=== PATIENT | male | born 1950 | race Caucasian/White ===

== ENCOUNTER 2018-12-29 05:56 | Day surgery (SDC) | payer MEDICARE, OTHER ==
[~2018-12-29] VITALS: Ht 175.3 cm; Wt 75.6 kg
[~2018-12-29 05:56] MED LIST: AREDS PO; ERGO400 PO; MAGNESIUM PO; Senna8.6 MG PO; Stool Softener100 MG PO; ZESTORETIC 20-121 EA PO
--- NOTE | 2018-12-29 07:02 | NUR ---
History, Chart, Medications and Allergies reviewed before start of procedure.Patient confirms NPO status and agrees with scheduled surgery. Patient reports completing Chlorhexadine shower X2 prior to admission to hospital.Surgical site prepped with 2% Chlorhexidine cloth wipe.
--- NOTE | 2018-12-29 13:59 | NUR ---
PATIENT DISCHARGED IN STABLE CONDITION, URGE TO URINATE HAS PASSED AND HE WAS ABLE TO VOID ANOTHER 30 ML FOR A TOTAL OF 90 ML. PATIENT HAD SOME DESATURATIONS WHILE AT REST THAT REQUIRED FREQUENT REMINDERS UNTIL THE LAST 30 MINUTES OF HIS RECOVERY IN WHICH HE STATES THAT HE FEELS MUCH BETTER AND WOULD LIKE TO BE DISCHARGED HOME. DISCHARGE INSTRUCTIONS GIVEN AND UNDERSTANDING STATED BY PATIENT AND FAMILY. COPY OF DISCHARGE INSTRUCTIONS GIVEN AND SCRIPT GIVEN TO PATIENT.
== END 2018-12-29 14:03 | disposition home or self-care (01) ==
LOC: ORSCMMR 05:56 → ORD 07:30 → ORSCMMR 14:03
PROVIDERS: Surgery
PROC: 0YUA4JZ Supplement Bilateral Inguinal Region with Synthetic Substitute, Percutaneous Endoscopic Approach (ICD-10-PCS; principal; 2018-12-29 07:30)
PROC: 8E0W4CZ Robotic Assisted Procedure of Trunk Region, Percutaneous Endoscopic Approach (ICD-10-PCS; principal; 2018-12-29 07:30)
DX: K40.20 Bilateral inguinal hernia, without obstruction or gangrene, not specified as recurrent (principal); I10 Essential (primary) hypertension; Z79.899 Other long term (current) drug therapy
CPT/HCPCS: 49650; S2900; A9270-GY; C1781; J0690; J1100; J1885; J2250; J2405; J2710; J3010; J7120

== ENCOUNTER 2023-09-30 12:08 | Day surgery (SDC) | payer MEDICARE, OTHER ==
[~2023-09-30] VITALS: Ht 175.3 cm; Wt 71.6 kg
[~2023-09-30 12:08] MED LIST changes: +Azelex30 GM; -ERGO400 PO; +GABAPENTIN; +Vitamin D3
[2023-09-30] MEDS ORDERED: LISINOPRIL-HCT1 EACH PO (12:52)
[2023-09-30] MEDS ORDERED: NEURONTIN300 MG PO (12:54)
--- NOTE | 2023-09-30 13:49 | NUR ---
09/30/[address] AWARE OF PULSE RATE OF 42 ON MONITOR AND 46 MANUAL COUNTED PULSE RATE.
--- NOTE | 2023-09-30 14:10 | NUR ---
09/30/23 1410 Emily Ly 40ML OF ROPIVACAINE 0.5% MIXED AND VERIFIED WITH 0.2ML OF EPI (1MG/ML) TO MAKE ROPIVACAINE 0.5% WITH EPI 1:200,000 FOR INJECTION AT THE OPSITE BY DR MENDEZ.
[2023-09-30 15:16] VITALS: BP 160/72
== END 2023-09-30 16:11 | disposition home or self-care (01) ==
LOC: ORSCSDS 12:08
PROVIDERS: Podiatrist Foot & Ankle Surgery
PROC: 0SGN04Z Fusion of Left Metatarsal-Phalangeal Joint with Internal Fixation Device, Open Approach (ICD-10-PCS; principal; 2023-09-30 13:30)
DX: M20.22 Hallux rigidus, left foot (principal); I10 Essential (primary) hypertension; Z79.899 Other long term (current) drug therapy; Z87.891 Personal history of nicotine dependence; Z85.46 Personal history of malignant neoplasm of prostate
CPT/HCPCS: 88305; 89060; C1713; J0171; J0690; J1100; J2405; J2704; J2795; J3010; J7120

== ENCOUNTER 2025-06-12 15:37 | Emergency (ER) | payer MEDICARE, OTHER ==
[~2025-06-12] VITALS: Ht 167.6 cm; Wt 72.6 kg
[~2025-06-12 15:37] MED LIST changes: +LISINOPRIL-HCT1 EACH PO; +NEURONTIN300 MG PO
[2025-06-12 15:50] LABS: Calcium, Ionized (POC) 1.09 mmol/L (1.10-1.46); Chloride (POC) 96 mmol/L (98-108); Creatinine (POC) 1.2 mg/dL (0.8-1.3); Glucose (ISTAT POC) 139 mg/dL (70-99); Hematocrit (POC) 38.0 % (41.0-53.0); Hemoglobin (POC) 12.9 g/dL (13.5-17.5); Potassium (POC) 3.3 mmol/L (3.5-5.5); Sodium (POC) 135 mmol/L (135-148); Total CO2 (POC) 26 mmol/L (21-32)
[2025-06-12] MEDS ORDERED: NS 1,000 ML IV SCH (15:50)
[2025-06-12 16:01] LABS: pH Blood Venous 7.38 (7.34-7.37)
[2025-06-12 16:05] LABS: BASOPHILS ABSOLUTE AUTO 0.06 K/mm3 (0.00-0.23); BASOPHILS PERCENT AUTO 0 % (0-2); EOSINOPHILS ABSOLUTE AUTO 0.06 K/mm3 (0.00-0.68); EOSINOPHILS PERCENT AUTO 0 % (0-6); Hematocrit 36.4 % (37.0-53.0); Hemoglobin 12.9 g/dL (13.5-17.5); IMMATURE GRAN ABSOLUTE AUTO 0.05 K/mm3 (0.00-0.10); IMMATURE GRAN PERCENT AUTO 0 % (0-1); LYMPHOCYTES ABSOLUTE AUTO 2.08 K/mm3 (0.84-5.20); LYMPHOCYTES PERCENT AUTO 16 % (21-46); MONOCYTES ABSOLUTE AUTO 0.98 K/mm3 (0.16-1.47); MONOCYTES PERCENT AUTO 7 % (4-13); Mean Corpuscular HGB Conc 35.4 g/dL (31.5-36.5); Mean Corpuscular Volume 96 fL (80-100); NEUTROPHILS ABSOLUTE AUTO 10.12 K/mm3 (1.96-9.15); NEUTROPHILS PERCENT AUTO 76 % (41-73); NRBC ABSOLUTE 0.00 K/mm3 (0.00-0.02); NRBC Auto 0.0 /100 WBC (0.0-0.2); Platelet Count 227 K/mm3 (150-400); RDW Coefficient Variation 12.6 % (11.7-14.2); RDW Standard Deviation 44.3 fL (35.1-46.3)
[2025-06-12] MEDS ORDERED: CefTRIAXone Sodium 1,000 MG in NS 50 ML IV ONE (16:05)
[2025-06-12 16:18] LABS: Source, Urine Straight Cath
[2025-06-12 16:21] LABS: Bilirubin, Urine Neg (Neg); Color, Urine Yellow (P-Yellow); Glucose Qualitative, Urine Neg (Neg); Ketones, Urine Neg (Neg); Leukocyte Esterase, Urine 1+ (Neg); Protein, Urine 2+ (Neg); Specific Gravity, Urine 1.015 (1.003-1.022); Urobilinogen, Urine 1+ (Normal)
[2025-06-12 16:34] LABS: Red Blood Cells, Urine 0-2 /hpf (0-2)
[2025-06-12 16:37] LABS: Alanine Aminotransfer (ALT/SGP 23.0 U/L (12-78); Albumin, Blood 3.2 g/dL (3.4-5.0); Albumin/Globulin Ratio 1.4 (0.8-1.8); Anion Gap 8.0 mmol/L (3-11); Aspartate Aminotrans (AST/SGOT 30.0 U/L (12-37); Bilirubin, Total 0.6 mg/dL (0.1-1.0); Blood Urea Nitrogen 19.0 mg/dL (8-24); CO2, Blood 29.0 mmol/L (21-32); Calcium, Blood 8.3 mg/dL (8.5-10.1); Chloride, Blood 100.0 mmol/L (98-108); Creatinine, Blood 1.08 mg/dL (0.60-1.20); Globulin, Blood 2.3 g/dL (2.2-4.0); Glucose, Blood 136.0 mg/dL (70-99); Potassium, Blood 3.3 mmol/L (3.5-5.5); Sodium, Blood 134.0 mmol/L (136-145); Total Protein, Blood 5.5 g/dL (6.4-8.2)
[2025-06-12] MEDS ORDERED: CONSTULOSE10 GM/155 PO (16:39)
[2025-06-12 18:15] VITALS: BP 94/66
--- NOTE | 2025-06-12 18:37 | NUR ---
Pastoral support is given to the spouse as Pt. is being prepped for Life Flight to [place]. Walked Pt. to the helipad, and listened with empathy and a calming presence as the spouse gave a life review. Escorted the Spouse back to the hospital after the helicopter departed.
== END 2025-06-12 18:21 | disposition short-term general hospital (02) ==
LOC: ER 15:37
PROVIDERS: Emergency Medicine
DX: I71.010 Dissection of ascending aorta (principal); I31.39 Other pericardial effusion (noninflammatory); I31.4 Cardiac tamponade; I10 Essential (primary) hypertension; Z79.899 Other long term (current) drug therapy
CPT/HCPCS: 51702; 71045; 71260; 80047; 80053; 81001; 82803; 83605; 84484; 85014; 85025; 87086; 93005; 93010; 93306; 96365-59; 96366; 96368; 99285-25; J0696; J7030; J7050; J7120; Q9967